=== PATIENT | male | born 2000 | race African-American/Black ===

== ENCOUNTER 2023-04-04 18:12 | Inpatient (IN) | payer MEDICARE, MEDICAID, SELFPAY ==
[2023-04-04 18:43] VITALS: BP 127/58; PULSE 92; RESP 16; TEMP 36.5; O2SAT 97; BMI 38.1
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
[2023-04-05 08:50] VITALS: BP 111/58; PULSE 82; RESP 18; TEMP 36; O2SAT 100
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
--- NOTE | 2023-04-05 12:38 | HO.PM.IMCN ---
History of Present Illness Data of Consult Service Date: 04/05/23 Primary Care Provider: Unknown Physician HPI Reason for consult: Admission H&P Pt is a 22-year-old transgender female with a PMH significant for?HIV, depression, anxiety, and PTSD who is admitted to [facility] psychiatry unit for increasing depression and SI with planned overdose on medications. Medical consult for admission H&P. ?Patient denies any significant PMH and has no stated acute medical complaints. Denies fever, chills, nausea, vomiting, diarrhea, abdominal pain. No chest pain/pressure, palpitations. Denies shortness of breath. Labs from ED reviewed, largely unremarkable. Review of Systems Review of Systems: No acute medical complaints PMFSH Social History Household Members: None Housing: Homeless Do you presently have visiting nurse or other home services: No Patient Tobacco Use Status: Never used Tobacco Substance Use Type: Crack/Cocaine and Marijuana Substance Use Frequency: Socially Last Used Substance: Days (ago) Currently Displaying Signs/Symptoms of Drug Intoxication Withdrawal: No Any prior treatment program specific to substance use: No Spiritual Healthcare Practices: N/A Zoroastrian Healthcare Practices: N/A Cultural Healthcare Practices: N/A Advance Directives: No Advance Directives Information Provided: No Do you have thoughts of harming others: None Do you have a plan to hurt others: No Plan Recently lost weight without trying: No How much weight loss: Not applicable Eating poorly because of decreased appetite: No Nutrition screen score: 0 Nutrition Risks: No Nutritional Risk Poor oral hygiene: No service: No Sexual orientation: Decline to Answer Meds Allergies Allergy/AdvReac Type Severity Reaction Status Date / Time No Known Allergies Allergy Unverified 04/30/20 19:48 [No Known Allergies*] Active Medications: Current Medications Acetaminophen (Acetaminophen 325 Mg Tablet) 650 mg PO Q6H PRN PRN Reason: Headache/Pain Mild Scale (1-3) Al Hydroxide/Mg Hydroxide (Magnesium Hydrox/Alum Hydrox 30 Ml Oral.Susp) 30 ml PO Q6H PRN PRN Reason: Heartburn/Nausea Hydroxyzine HCl (Hydroxyzine Hcl 25 Mg Tablet) 25 mg PO Q6H PRN PRN Reason: Anxiety Magnesium Hydroxide (Milk Of Magnesia 30 Ml Oral.Susp) 30 ml PO DAILY PRN PRN Reason: Constipation Trazodone HCl (Trazodone Hcl 50 Mg Tablet) 50 mg PO BEDTIME MRX1 PRN PRN Reason: Insomnia Home Medications Medication Instructions Recorded Confirmed Last Taken Type citalopram 10 mg tablet 10 mg PO BEDTIME 04/04/23 04/04/23 Unknown History citalopram 20 mg tablet 20 mg PO DAILY 04/04/23 04/04/23 Unknown History clonidine HCl 0.1 mg tablet 0.1 mg PO DAILY 04/04/23 04/04/23 Unknown History dolutegravir 50 mg tablet (Tivicay) 50 mg PO DAILY 04/04/23 04/04/23 Unknown History doxycycline hyclate 100 mg capsule 100 mg PO Q12H 04/04/23 04/04/23 Unknown History emtricitabine 200 mg-tenofovir 1 tab PO DAILY 04/04/23 04/04/23 Unknown History disoproxil fumarate 300 mg tablet estradiol valerate 40 mg/mL 20 mg IM Q2W 04/04/23 04/04/23 2 Weeks Ago History intramuscular oil ~03/21/23 hydroxyzine pamoate 50 mg capsule 50 mg PO BID PRN anxiety 04/04/23 04/04/23 Unknown History spironolactone 50 mg tablet 50 mg PO BID 04/04/23 04/04/23 Unknown History trazodone 50 mg tablet 50 mg PO BEDTIME PRN insomnia 04/04/23 04/04/23 Unknown History Physical Exam Vital Signs and Narrative: Vital Signs: Last Vital Signs Temp 96.8 F 04/05/23 08:50 Pulse 82 04/05/23 08:50 Resp 18 04/05/23 08:50 BP 111/58 L 04/05/23 08:50 Pulse Ox 100 04/05/23 08:50 O2 Del Method Room Air 04/05/23 08:50 BMI result Body Mass Index 38.1 General: AOx3, no acute distress Resp: CTA bilaterally CVS: S1, S2, RRR GI: +BS, NT, no distention Skin: No rash Neuro: Cranial nerves II-XII grossly intact bilaterally. Motor grossly intact bilaterally Extremities: No edema Psych: Appropriate affect Assessment and Plan (1) Routine history and physical examination of adult: Status: Acute Plan Pt is a 22-year-old transgender female with a PMH significant for?HIV, depression, anxiety, and PTSD who is admitted to psychiatry unit for increasing depression and SI with planned overdose on medications. Medical consult for admission H&P. ?Patient denies any significant PMH and has no stated acute medical complaints. Mood disorder Plan as per Psychiatry HIV Continue Marshal Peña Gender transitioning Continue estradiol Thank you for allowing us to participate in the care of this patient. Signing off at this time. Please let us know if there are any acute complaints or questions. Time Spent With Patient Time: Total time managing care of this patient today ____ minutes.
[2023-04-05] MEDS: Spironolactone 25 MG TABLET 50 MG PO ×2 (13:56→19:39)
[2023-04-05 13:57] VITALS: BP 126/83
[2023-04-05] MEDS: estradioL 0.5 MG TABLET 4 MG PO (16:41)
[2023-04-05 19:07] VITALS: BP 141/76; PULSE 106; TEMP 36.4; O2SAT 96
[2023-04-05 19:25] VITALS: BP 138/69; PULSE 95
--- NOTE | 2023-04-05 20:26 | PC.NURSE ---
Pt reported dizziness at approximately 1905, pt reported feeling dizzy in the shower so she got out. Pt V.S are 141/76, HR 106, 97.6, 96%. scallop cutter machine notified. No new orders. Encouraging fluid and rest. At approx. 1920 pt reported feeling better after drinking a pitcher of water. Pt questions if this episode is caused by taking estradiol PO rather than IM, as she usually gets it. Pt reported feeling safe and not dizzy anymore. Will continue to monitor.
[2023-04-05] MEDS: Magnesium Hydrox/Alum Hydrox 30 ML ORAL.SUSP PO (21:49)
[2023-04-05] MEDS: diphenhydrAMINE HCL 25 MG CAPSULE 50 MG PO (22:00)
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
[2023-04-06] MEDS: estradioL 0.5 MG TABLET 4 MG PO (11:37)
[2023-04-06] MEDS: Spironolactone 25 MG TABLET 50 MG PO ×2 (11:37→19:56)
[2023-04-06 11:41] VITALS: BP 110/60; PULSE 78; RESP 18; TEMP 36.3; O2SAT 94
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
[2023-04-06 19:50] VITALS: BP 142/66; PULSE 89; TEMP 36.1
[2023-04-06] MEDS: diphenhydrAMINE HCL 25 MG CAPSULE 50 MG PO (20:30)
[2023-04-07] MEDS: estradioL 0.5 MG TABLET 4 MG PO (09:35)
[2023-04-07] MEDS: Naloxone HCl Nasal TAKE HOME 4 MG SPRAY 8 MG NOSTRILALT (09:36)
[2023-04-07] MEDS: Spironolactone 25 MG TABLET 50 MG PO (09:36)
== END 2023-04-07 11:32 | disposition home or self-care (01) | DRG 885 ==
PROVIDERS: Admitting Provider Psychiatry & Neurology Psychiatry; Visit Provider Psychiatry & Neurology Psychiatry
DX: F33.1 Major depressive disorder, recurrent, moderate (principal); R45.851 Suicidal ideations; F43.12 Post-traumatic stress disorder, chronic; Z21 Asymptomatic human immunodeficiency virus [HIV] infection status; F14.10 Cocaine abuse, uncomplicated; F64.0 Transsexualism; Z79.899 Other long term (current) drug therapy

== ENCOUNTER → 2023-04-04 18:12 | Outpatient (BNV) | payer MEDICARE, MEDICAID, SELFPAY | PROVIDERS: Admitting Provider Psychiatry & Neurology Psychiatry; Visit Provider Student in an Organized Health Care Education/Training Program | DX: Z02.2 Encounter for examination for admission to residential institution (principal) | CPT/HCPCS: 99429 ==

== ENCOUNTER → 2023-04-04 18:12 | Outpatient (BNV) | payer MEDICARE, MEDICAID, SELFPAY | PROVIDERS: Admitting Provider Psychiatry & Neurology Psychiatry; Visit Provider Psychiatry & Neurology Psychiatry | DX: F43.11 Post-traumatic stress disorder, acute (principal); F33.1 Major depressive disorder, recurrent, moderate; F14.10 Cocaine abuse, uncomplicated | CPT/HCPCS: 90792; 99231; 99238 ==